=== PATIENT | male | born 1945 | race Caucasian/White ===

== ENCOUNTER 2017-07-06 08:57 | Day surgery (SDC) | payer BC ==
--- NOTE | 2017-07-06 07:52 | History and Physical Report ---
DATE: 07/05/2017. CHIEF COMPLAINT AND HISTORY OF CHIEF COMPLAINT: This is a patient with a history of an intractable postlumbar laminectomy syndrome. He had a spinal cord stimulator trial on 05/23/2017 with greater than 75 percent pain control. Due to the failure of therapy, he arrives today for implantation of a permanent system. PAST MEDICAL HISTORY: Hypertension, asthmatic bronchitis, diabetic peripheral neuropathy, reflux esophagitis. SOCIAL HISTORY: Caffeine. FAMILY HISTORY: Diabetes, cancer, coronary artery disease. PAST SURGICAL HISTORY: Carpal tunnel release, hand surgery, rotator cuff surgery, lumbar spinal surgery, gastrectomy. MEDICATIONS ON ADMISSION: To be provided. ALLERGIES: None. REVIEW OF SYSTEMS: The patient seems appropriate and in no acute distress. The remainder of the systems review shows glasses, breathing difficulties, peripheral edema, reflux, degenerative arthritis. PHYSICAL EXAMINATION: General: Height and weight are unknown. Vital Signs: Not available. HEENT: Within normal limits. Lungs: Clear. Heart: Regular rate and rhythm. Abdomen: Nontender. Musculoskeletal: Examination of the musculoskeletal system shows pain across both legs, somewhat more right than left. Sensory field evaluation shows mild anterior and posterior deficit. Motor functionality shows a generalized weakness into both lower extremities. Ambulation: Assistive device utilized. Neurologic: Cranial nerves are intact. IMPRESSION: 1. POSTLUMBAR LAMINECTOMY SYNDROME, ICD-10 CODE M96.1. 2. LUMBAR RADICULOPATHY, ICD-10 CODE M54.16 AND M54.17. PLAN: The patient is here for implantation of spinal cord stimulator after a successful trial and the failure of all other conservative therapies. The potential risks, side effects, and complications have been reviewed and discussed including spinal cord injury, nerve root injury, and spinal headache. He was provided information from the civil transportation engineer in the form of a CD Rom. He was put in contact with a administrative representative from the company who also discussed the risks, side effects, and complications. All of his questions have been answered. We will consider the procedure outpatient, although an overnight stay will be evaluated. JOB NUMBER: [id number] cc: Debra Martines
[~2017-07-06 08:57] MED LIST: ACETAMINOPHEN 1,000 MG/100 ML BTL IV ONE; CEFAZOLIN 2 Gram 2 GM/50 ML BAG IVPB ONE; FAMOTIDINE 20MG TABLET PO ONE; MECLIZINE 25 MG TABLET PO ONE; METOCLOPRAMIDE 10 MG TABLET PO ONE
[2017-07-06] MEDS ORDERED: BUPIVACAINE 0.5% W/EPI MPF 30 ML VIAL IVP ONE (08:58)
[2017-07-06] MEDS ORDERED: CEFAZOLIN 1G VIAL IM ONE (08:58)
[2017-07-06] MEDS ORDERED: LIDOCAINE 1% W/EPI 1:200,000 MPF 30ML SQ ONE (08:58)
[2017-07-06] MEDS ORDERED: PROPOFOL 10 MG/ML VIAL IV ONE (08:58)
[2017-07-06] MEDS ORDERED: FENTANYL PF 100MCG/2ML VIAL IV ONE (08:58)
[2017-07-06] MEDS ORDERED: MIDAZOLAM HCL 2MG/2ML VIAL IV ONE (08:58)
[2017-07-06] MEDS ORDERED: *PACU ONLY* KETAMINE HCL 10 MG/ML (20ML) VIAL IV ONE (08:58)
[2017-07-06] MEDS ORDERED: LIDOCAINE 2% MDV (20MG/ML) 20ML VIAL IV ONE (08:58)
[2017-07-06] MEDS ORDERED: ALPRAZOLAM 0.25 MG TABLET PO ONE (08:58)
[2017-07-06] MEDS ORDERED: OXYCODONE/APAP 10MG-325MG TABLET PO PRN ×2 (13:02)
[2017-07-06] MEDS ORDERED: DIPHENHYDRAMINE HCL IV 50 MG/ML VIAL IVP PRN ×2 (13:02)
[2017-07-06] MEDS ORDERED: ACETAMINOPHEN 325 MG TAB PO PRN ×2 (13:02)
[2017-07-06] MEDS ORDERED: METOCLOPRAMIDE HCL 10 MG/2 ML VIAL IVP PRN (13:02)
[2017-07-06] MEDS ORDERED: HYDROMORPHONE HCL 2 MG/ML VIAL IM PRN ×2 (13:02)
[2017-07-06] MEDS ORDERED: SENNOSIDES/DOCUSATE SODIUM UD CAPSULE PO PRN ×2 (13:02)
[2017-07-06] MEDS ORDERED: AL HYDROX/MAG HYDROX 30ML UD PO PRN (13:02)
[2017-07-06] MEDS ORDERED: HYDROCODONE/APAP 7.5/325MG TABLET PO PRN (13:02)
[2017-07-06] MEDS ORDERED: METOCLOPRAMIDE 10 MG TABLET PO PRN (13:02)
[2017-07-06] MEDS ORDERED: TEMAZEPAM 15 MG CAPSULE PO PRN ×2 (13:02)
[2017-07-06] MEDS ORDERED: DIPHENHYDRAMINE HCL 25 MG CAPSULE PO PRN ×2 (13:02)
[2017-07-06] MEDS ORDERED: ALBUTEROL HFA 8 GM INHALER INH PRN (13:03)
[2017-07-06] MEDS ORDERED: PANTOPRAZOLE SODIUM 40 MG TABLET PO PRN (13:04)
--- NOTE | 2017-07-06 16:01 | Operative Note - Ferro ---
DATE OF SURGERY: 07/06/17 PREOPERATIVE DIAGNOSES: 1. POST LUMBAR LAMINECTOMY SYNDROME, ICD-10 CODE = M96.1. 2. LUMBAR RADICULOPATHY, ICD-10 CODE = M54.16 AND M54.17. OPERATION: 1. FLUOROSCOPICALLY-GUIDED EPIDURAL ACCESS T11/12. PLACEMENT OF SPINAL CORD STIMULATOR LEAD 1, A [employer] INFINION 16 WITH 16 ELECTRODES POSITIONED LEFT T7. 2. FLUOROSCOPICALLY-GUIDED EPIDURAL ACCESS LEFT T12/L1. PLACEMENT OF SPINAL CORD STIMULATOR LEAD 2, A [employer] INF[employer] 16 WITH 16 ELECTRODES POSITIONED RIGHT T7. 3. COMPLEX PROGRAMMING LEAD 1 OVER 20 MINUTES FOLLOWED BY COMPLEX PROGRAMMING LEAD 2 OVER 20 MINUTES. 4. INCISION, SUBCUTANEOUS DISSECTION, AND ANCHORING LEAD 1 AND LEAD 2 TO SUPRASPINOUS FASCIA USING A [employer] LOCKING ANCHOR. 5. INCISION, SUBCUTANEOUS DISSECTION, AND CREATION OF A SUBCUTANEOUS POUCH AT LEFT FLANK, SITE PICKED BY PATIENT FOR GENERATOR IDENTIFIED [employer] PROGRAMMABLE RECHARGEABLE. 6. TUNNELING BETWEEN POUCHES, PLACEMENT OF EXTERNAL PORTION OF LEAD 1 AND LEAD 2 INTO GENERATOR POUCH, EACH LEAD INTERFACED TO GENERATOR. 7. PLACEMENT OF GENERATOR POUCH SECURING TO POSTERIOR FASCIA WITH NONABSORBABLE SUTURE. PLACEMENT OF LEADS INTO POUCH. CLOSURE OF BOTH INCISIONS VICRYL FOR FASCIA AND A RUNNING SUBCUTICULAR VICRYL FOR SKIN. DERMABOND CLOSURE. 8. COMPLEX RECOVERY ROOM PROGRAMMING INTERNAL GENERATOR HOME USE, TWO STIMULATORS, 20 MINUTES. SURGEON: ERUM STUART D.O. ANESTHESIA: LOCAL SEDATION. ANESTHESIA PROVIDER: KATIE JONES CRNA. INDICATION: This patient presents with a history of an intractable post laminectomy radiculopathy. Due to the failure of therapy, a stimulator trial was conduced in the office with 75 to 85% pain control. Due to the failure of all therapies and the success of the trial, patient presents today for implantation of a permanent system. PROCEDURE: Intravenous line, vital sign monitoring, IV sedation, prepped and draped in sterile technique. Patient position prone. Sterile prep, sterile technique. Under imaging, from the left, the epidural interspace at 12/1 and 11/ 12 both identified and marked, infiltrated, and then two separate curved axis Epimed needles with [id number]. At 12/1, spinal cord stimulator lead 1, a [employer] Infinion 16 with 16 electrodes, positioned left T7. With the epidural access left of midline at 12/1, spinal cord stimulator lead 2, a [employer] Infinion 16 with 16 electrodes, positioned right of T7. Complex programming of lead 1 over 20 minutes followed by complex programming of lead 2 over 20 minutes resulting in patterns of stimulation across the back and into the legs; patient indicating we are in all of the areas of the pain. He was given the option to continue to program, remove, or implant; he opted to implant. Questions were repeated with the same response. The skin above and below both needles was infiltrated with local then an incision made and subcutaneous dissection was conducted to the supraspinous fascia. Each lead was then anchored to the deep fascia with a [employer] [place] and nonabsorbable suture once the needles were removed. At the left flank, a site picked by the patient for the generator, [employer] Programmable Rechargeable, skin infiltrated, incision made, and subcutaneous dissection was conducted to form a pouch of suitable size and depth. A tunneling tool was used to carry the leads into the generator pouch and then each lead was interfaced to the generator. Antibiotic irrigation and Bovie for hemostasis. The generator was placed into the pouch and secured to the fascia with nonabsorbable suture. The leads were then placed into their own pouch and then the incisions were closed Vicryl for fascia and a running subcuticular Vicryl for skin. A Dermabond closure system was used to approximate the edges of each wound. The patient was then transported to the Recovery Room stable. No side-effects from the procedure or the sedation. The request was to be discharged home. The discharge instructions have been written although an overnight stay will be evaluated as necessary. DISCHARGE INSTRUCTIONS: 1. Sites will remain clean and dry although the Dermabond will allow showering in 24 hours. He should not sit in water but shower would be approved. 2. Standard medications resumed. A script has been written for the [place] 7.5/ 325 for a ten-day postoperative use four a day. He will resume his other standard medications. 3. The office will contact the patient at home within the next two days to set up an evaluation in 7-10 days to evaluate the sites. Through that period of time , activity should stay low. The incisional sites should stay clean and dry. No showering or bathing. All other instructions provided, numbers to contact with problems have been given. At that point, the patient will be discharged to home. cc: Dr. Ivy Samaniego JOB NUMBER: [id number] MTDD
[2017-07-06] MEDS: CEFAZOLIN 2 Gram 2 GM/50 ML BAG IVPB SCH (18:11)
[2017-07-06] MEDS: GABAPENTIN 300 MG CAPSULE PO SCH ×2 (18:11→22:45)
[2017-07-06] MEDS: HYDROCODONE/APAP 7.5/325MG TABLET PO PRN (18:24)
[2017-07-06] MEDS ORDERED: ENALAPRIL 5 MG TABLET PO SCH (22:00)
[2017-07-06] MEDS ORDERED: ZOLPIDEM TARTRATE 5 MG TABLET PO SCH (22:00)
[2017-07-06] MEDS ORDERED: 0.9 % SODIUM CHLORIDE 10ML SYR IVP SCH (22:00)
[2017-07-06] MEDS ORDERED: SIMVASTATIN 20 MG TABLET PO SCH (22:00)
[2017-07-07] MEDS: CEFAZOLIN 2 Gram 2 GM/50 ML BAG IVPB SCH ×2 (01:36→08:21)
[2017-07-07] MEDS: HYDROCODONE/APAP 7.5/325MG TABLET PO PRN (08:20)
[2017-07-07] MEDS ORDERED: AMLODIPINE BESYLATE 5MG TAB PO SCH (10:00)
[2017-07-07] MEDS ORDERED: VENLAFAXINE ER 75 MG CAPSULE PO SCH (10:00)
--- NOTE | 2017-07-07 19:50 | RADIOLOGY REPORT ---
EXAM: SPINE, 1 VIEW HISTORY: SPINAL CORD STIMULATOR IMPLANT. TECHNIQUE: AP view of the thoracolumbar spine. COMPARISON: None. FINDINGS: There is a battery pack overlying the left lower abdomen. Catheter/ wire extends from this to overly the mid lumbar spine and then ascends up to the T9 level. There are a couple small squared or rectangular metallic densities overlying the left side of the upper lumbar spine of uncertain significance and correlation with the procedure suggested. Extensive degenerative changes in the lumbar spine with a lumbar curve to the right. There is probably some discoid atelectasis in the left lung base. IMPRESSION: SPINAL STIMULATOR WIRES IN PLACE EXTENDING UP TO OVERLY THE T9 LEVEL, DESCRIBED ABOVE. JOB NUMBER: [id number] MTDD
== END 2017-07-07 10:00 | disposition home or self-care (01) ==
LOC: SUR 08:57 → MEDSURG 13:05 → SUR 07-07 10:00
PROVIDERS: ATTEND Pain Medicine Interventional Pain Medicine
DX: M96.1 Postlaminectomy syndrome, not elsewhere classified (principal); M54.16 Radiculopathy, lumbar region; M54.17 Radiculopathy, lumbosacral region; I10 Essential (primary) hypertension; J45.909 Unspecified asthma, uncomplicated; E78.00 Pure hypercholesterolemia, unspecified; E11.9 Type 2 diabetes mellitus without complications
CPT/HCPCS: 63650 ×2; 63685; 01936; 95972; 85002; 72020; J3490; J3010; J0690 ×2; C1820; C1883

== ENCOUNTER 2019-03-07 09:26 | Day surgery (SDC) | payer BC ==
--- NOTE | 2019-03-07 06:52 | History and Physical - Ferro ---
CHIEF COMPLAINT/HISTORY OF CHIEF COMPLAINT: This patient presents with a history of an intractable lumbar radiculopathy. Due to the failure of therapy, a spinal cord stimulator implant was performed on 07/06/17. Although initially this device appeared to be working quite well, over time it appeared to fail. He is here by his request for removal of the device. PAST MEDICAL HISTORY: Hypertension, asthmatic bronchitis, peripheral neuropathy, and reflux esophagitis. PAST SURGICAL HISTORY: Carpal tunnel release, hand surgery, rotator cuff surgery, and lumbar spinal surgery. MEDICATIONS ON ADMISSION: List to be provided. ALLERGIES: none. FAMILY/PSYCHOSOCIAL HISTORY: Social history - Caffeine. Family history - Diabetes, cancer, and coronary artery disease. SYSTEMS REVIEW: The patient is appropriate in no acute distress. The remainder of the systems review is positive for glasses, breathing difficulties, peripheral edema, reflux and degenerative arthritis. PHYSICAL EXAMINATION: Height is 6'1", weight is 230. No vital signs. HEENT: Within normal limits. LUNGS: Clear. HEART: Rapid and regular. ABDOMEN: Nontender. MUSCULOSKELETAL: Examination of the musculoskeletal system shows the generator pouch in the left posterior gluteal margin. Midline incisions approximating T12-L1 noted to the leads. The incisions are intact. The sensory field is intact. Chronic pain pattern bilateral lower extremity. No motor or sensory abnormalities with pain. NEUROLOGIC: Cranial nerves are intact. IMPRESSION: 1. POST LUMBAR LAMINECTOMY SYNDROME, ICD-10 CODE M96.1 WITH RADICULOPATHY, ICD- 10 CODE M54.16 AND M54.17. 2. IMPLANTED SPINAL CORD STIMULATOR INTERNAL GENERATOR NONFUNCTIONAL. PLAN: The patient is here for removal of the stimulator and generator on an outpatient basis. The risks, side effects and complications have been reviewed and discussed. JOB NUMBER: [id number] [facility]
[~2019-03-07 09:26] MED LIST changes: -ACETAMINOPHEN 1,000 MG/100 ML BTL IV ONE; +ACETAMINOPHEN 1,000 MG/100 ML BTL IVPB ONE
[2019-03-07] MEDS ORDERED: MIDAZOLAM HCL 2MG/2ML VIAL IV ONE (09:27)
[2019-03-07] MEDS ORDERED: LIDOCAINE 2% MDV (20MG/ML) 20ML VIAL IV ONE (09:27)
[2019-03-07] MEDS ORDERED: PROPOFOL 10 MG/ML VIAL IV ONE (09:27)
[2019-03-07] MEDS ORDERED: FENTANYL PF 100MCG/2ML VIAL IV ONE (09:27)
[2019-03-07] MEDS ORDERED: RINGERS SOLUTION,LACTATED 1,000 ML IV ONE (10:05)
[2019-03-07] MEDS ORDERED: LIDOCAINE 1% W/EPI 1:200,000 MPF 30ML SQ ONE (12:22)
[2019-03-07] MEDS ORDERED: CEFAZOLIN 1G VIAL IR ONE (12:22)
[2019-03-07] MEDS ORDERED: BUPIVACAINE 0.5% W/EPI MPF 30 ML VIAL SQ ONE (12:22)
[2019-03-07] MEDS ORDERED: HYDROCODONE/APAP 7.5/325MG TABLET PO ONE (13:24)
--- NOTE | 2019-03-07 13:57 | Operative Note - Ferro ---
DATE OF SURGERY: 03/07/2019 PREOPERATIVE DIAGNOSIS: 1. POST LUMBAR LAMINECTOMY SYNDROME, ICD-10 CODE M96.1 WITH RADICULOPATHY, ICD- 10 CODE M54.16 AND M54.17. 2. SPINAL CORD STIMULATOR INTERNAL GENERATOR NONFUNCTIONAL. OPERATION: 1. FLUOROSCOPICALLY GUIDED INCISION, SUBCUTANEOUS DISSECTION, AND REMOVAL OF TWO SPINAL CORD STIMULATORS IMPLANTED. 2. INCISION, SUBCUTANEOUS DISSECTION AND REMOVAL OF IMPLANTED INTERNAL PULSE GENERATOR. SURGEON: Dev Coats D.O. ANESTHESIA: Local sedation ANESTHESIA PROVIDER: Ric Ibarra CRNA INDICATION: This patient presents with a history of intractable lumbar radiculopathy post laminectomy in origin. Due to the failure of therapy and the number of years previous, a spinal cord stimulator and internal generator was placed. Over the last year the system has begun to malfunction, there was migration of the leads, he was given the option to remove or revise and he opted to remove. PROCEDURE: Intravenous line, vital sign monitoring, IV sedation by Anesthesia, the patient was positioned prone, sterile prep, sterile technique. The incision for the two implanted leads was identified and infiltrated, an incision was made, and subcutaneous dissection was conducted to the anchor. The anchor and sutures were removed. Each of the leads was removed intact. All electrodes are accounted for. At the left posterior gluteal margin the generator pouch was infiltrated, an incision was made and subcutaneous dissection was conducted to the generator pouch. The generator pouch was opened, the generator was exteriorized along with its connections to the leads. All components were removed. Antibiotic irrigation, Bovie for hemostasis. The incisions were then closed using Stratafix suture 2-0 fascia and 3-0 skin. Dermabond closure. He was transported to the Recovery Room stable. No side effects from the procedure. He was requesting discharge. DISCHARGE INSTRUCTIONS: 1. The sites are to remain clean and dry. No showering or bathing in any way that would disrupt the dressings. If it happens contact the clinic. 2. Standard medications resumed including the antibiotic Levaquin 500 mg once a day for fourteen days. 3. Office to contact the patient in 12-24 hours to set up a time in 7-10 days for us to evaluate the sites, until then keep activities low. All other instructions are provided. Numbers to contact if problems given. He was then discharged. JOB NUMBER: [id number] [facility]
== END 2019-03-07 13:36 | disposition home or self-care (01) ==
LOC: SUR 09:26
PROVIDERS: ATTEND Pain Medicine Interventional Pain Medicine
DX: T85.193A Other mechanical complication of implanted electronic neurostimulator, generator, initial encounter (principal); M54.16 Radiculopathy, lumbar region; M54.17 Radiculopathy, lumbosacral region; I10 Essential (primary) hypertension; E78.00 Pure hypercholesterolemia, unspecified; I25.10 Atherosclerotic heart disease of native coronary artery without angina pectoris; J45.909 Unspecified asthma, uncomplicated
CPT/HCPCS: J0690; J7120